=== PATIENT | male | born 1990 | race Asian ===

== ENCOUNTER 2018-05-15 01:57 | Emergency (ER) | payer BC ==
[~2018-05-15] VITALS: Ht 170.2 cm; Wt 97.7 kg
[2018-05-15 03:10] VITALS: BP 134/84
== END 2018-05-15 03:18 | disposition home or self-care (01) ==
LOC: ER 01:58
DX: R06.02 Shortness of breath (principal); R00.2 Palpitations; R00.0 Tachycardia, unspecified
CPT/HCPCS: 71046; 93005; 99283